=== PATIENT | female | born 1975 | race Caucasian/White ===

== ENCOUNTER 2022-10-21 20:11 | Emergency (ER) | payer BC, SELFPAY ==
[2022-10-21 20:15] VITALS: BP 110/64; PULSE 117; RESP 20; TEMP 37.1; O2SAT 96
== END 2022-10-21 22:19 | disposition left against medical advice (07) ==
LOC: ANHED 22:19
DX: R51.9 Headache, unspecified (principal)
CPT/HCPCS: 99199

== ENCOUNTER 2023-04-03 10:19 | Emergency (ER) | payer BC, SELFPAY ==
[2023-04-03] VITALS (9 sets, daily range): BP systolic 110–129; BP diastolic 69–95; PULSE 69–100; RESP 16–18; TEMP 36.6–36.7; O2SAT 96–100
--- NOTE | 2023-04-03 12:13 | ED.EXTPRO ---
HPI - Extremity Problem General Chief complaint: Extremity Problem,Nontraumatic Stated complaint: my lupus is acting out Time Seen by Provider: 04/03/23 11:58 History of Present Illness HPI Narrative: Patient is a 47-year-old female with a history of lupus presenting with pain. States that when her lupus flares she often has severe pain in her right foot. States that this time she has severe pain in both of her feet. States that she started to notice some of her symptoms over the weekend so she started taking some of her steroids. States that she follows with a armhole baster jumpbasting at [facility] and is on Plaquenil as well as immunotherapy for her lupus. States that she has tramadol for severe pain which is not been helping much. also complains of muscle spasms in her toes. She denies any recent trauma. No recent infectious symptoms. No leg swelling or redness. No further complaints. Related Data Allergies Allergy/AdvReac Type Severity Reaction Status Date / Time morphine Allergy Unknown unknown Verified 10/14/22 13:56 TAPES AdvReac Severe SKIN Uncoded 10/14/22 13:56 BREAKDOWN--LEAVES SCARS AT AREAS Review of Systems Review of Systems: All systems reviewed & are unremarkable except as noted in HPI and below PMFSH Family History Family History Mother Family history of chronic obstructive pulmonary disease Father Family history of heart disease in male family member before age 55 Social History Social History Smoking status: Never smoker Alcohol intake: never Lack of Transportation: No Lack of Food: Never True Current Housing: I Have Housing Concerned About Future Housing: No Difficulty Paying Gas/Electric Bills: No Difficulty Paying for Meds: No Currently Unemployed: No Education: Trade/Vocational Certificate Difficulty w/ Childcare or Family Care: No Exam Narrative: GENERAL: Nontoxic, somewhat tearful secondary to her pain, pleasant cooperative HEAD: Normocephalic, atraumatic. EYES: PERRLA and EOMI. ENT: grossly unremarkable NECK: Supple. CHEST: No respiratory distress. HEART: Regular rate and rhythm. Normal peripheral pulses. EXTREMITIES: Normal range of motion. No edema. 2+ DP pulses bilaterally, no erythema or edema of either lower extremity SKIN: Warm, dry, no rash. NEURO: No focal deficits. Alert and oriented x3. PSYCH: Normal mood and affect. Course Vital Signs Vital signs: Vital Signs Temperature 98 F 04/03/23 10:30 Pulse Rate 100 04/03/23 10:30 Respiratory Rate 16 04/03/23 10:30 Blood Pressure 129/95 H 04/03/23 10:30 Pulse Oximetry 100 04/03/23 10:30 Temperature 98.0 F 04/03/23 17:40 Pulse Rate 82 04/03/23 17:40 Respiratory Rate 16 04/03/23 17:40 Blood Pressure 127/88 04/03/23 17:40 Pulse Oximetry 98 04/03/23 17:40 MDM - Extremity (Nontraumatic) MDM Narrative Medical decision making narrative: 47-year-old female presenting with lupus flare. Vitals are stable. Exam remarkable for the above. Patient denies any trauma or infectious symptoms lately. States that she often goes to [place] for her lupus flares and she receives a cocktail of medications that seem to help. Will give some fluids, steroids, Dilaudid, Toradol. Patient with some improvement in her pain after IV pain medications but pain worsens when she tries to ambulate. Patient given some Valium and on re-evaluation states that this seemed to help significantly. States that her spasms have gotten much better. She feels comfortable going home. Will send her home with a Medrol Dosepak as well as some Valium for severe spasms. She is going to follow-up closely with her armhole baster jumpbasting. Appropriate return precautions given. Discharged in stable condition. Differential Diagnosis Differential diagnosis: Likely other ( Foot pain, lupus) Me
[2023-04-03] MEDS: SODIUM CHLORIDE 0.9% IV 1,000 ML 999 ML IV CONT (12:35)
[2023-04-03] MEDS: methylPREDNISolone SOD SUCC 125 MG VIAL IV PUSH (12:36)
[2023-04-03] MEDS: KETOROLAC 30 MG/ML VIAL (*BKC) IV PUSH (12:36)
[2023-04-03] MEDS: HYDROmorphone HCL INJ (*CRX) 1 MG/ML SYR IV PUSH (12:37)
--- NOTE | 2023-04-03 13:23 | PC.NURSE ---
Pt resting with reg resp. States pain meds have taken the edge off her foot pain. PO fluids given.Denies nausea
[2023-04-03] MEDS: HYDROmorphone HCL INJ (*CRX) 1 MG/ML SYR 0.5 MG IV PUSH (14:49)
[2023-04-03] MEDS: diazePAM INJ (*CRX) 10 MG/2 ML SYRINGE 2 MG IV PUSH (14:49)
--- NOTE | 2023-04-03 14:58 | PC.NURSE ---
Pt ambulated with 1 assist to bathroom. Gait unsteady, pt c/o spams & increase pain when bearing weight. Dr. Mojica at bedside reassessed pt & orders received.
--- NOTE | 2023-04-03 15:39 | PC.NURSE ---
Pt reports spams to feet have subsided since Valium given. Rates pain 2 at this time.
--- NOTE | 2023-04-03 17:01 | PC.NURSE ---
Pt resting talking on phone.
--- NOTE | 2023-04-03 17:44 | PC.NURSE ---
Pt able to ambulate short distances with slow gait. Pain controlled & spasm to bilateral feet gone
== END 2023-04-03 17:47 | disposition home or self-care (01) ==
PROVIDERS: Emergency Provider Emergency Medicine
DX: M79.671 Pain in right foot (principal); M79.672 Pain in left foot; M32.9 Systemic lupus erythematosus, unspecified
CPT/HCPCS: 96361; 96374; 96375; 96376; 99284; J1170; J1885; J2930; J3360; J7030

== ENCOUNTER 2023-05-21 18:40 | Emergency (ER) | payer BC, SELFPAY ==
--- NOTE | ~2023-05-21 | CT_ITS ---
EXAMINATION: CTA brain carotid DATE: 05/21/2023 21:34 INDICATION: Seizure-like activity. TECHNIQUE: Computed tomographic angiography (CTA) of the head was performed without and with 100 mL O mnipaque-350 intravenous contrast. CTA of the neck was performed with intravenous contrast. Automated exposure control and iterative reconstruction technique were employed. The dose-length product was 1 635.06 mGy-cm. Maximum intensity projection and volume rendered 3D-reconstructions were created by ahsan tomas technologist on a separate workstation. COMPARISON: None. FINDINGS: HEAD CTA: There is no intracranial hemorrhage, acute infarction, or abnormal intracranial mass lesion . The ventricles are normal in size. There is mild mucosal thickening in the ethmoid sinuses. The orb its are normal. The mastoid air cells are normal. The vertebral arteries are codominant. There is no significant stenosis of basilar artery or the posterior cerebral arteries. There is no significant st enosis of intracranial internal carotid arteries or anterior or middle cerebral arteries. Anterior co mmunicating artery is normal. The posterior communicating arteries are normal. There is no aneurysm. NECK CTA: There are no pathologically enlarged lymph nodes. There is no significant stenosis of the v ertebral arteries. There is no visible plaque in the proximal internal carotid arteries. There is 0% stenosis of the proximal right internal carotid artery relative to normal distal artery lumen diamete r (NASCET criteria). There is 0% stenosis of the proximal left internal carotid artery relative to no rmal distal artery lumen diameter. There is mild cervical spondylosis. IMPRESSION: 1. Normal brain. No aneurysm or significant intracranial arterial stenosis. 2. 0% stenosis of the proximal internal carotid arteries relative to normal distal artery lumen diame ters (NASCET criteria). Reviewed, dictated and finalized at location E. IMPRESSION: 1. Normal brain. No aneurysm or significant intracranial arterial stenosis. 2. 0% stenosis of the proximal internal carotid arteries relative to normal dis mian artery lumen diameters (NASCET criteria).
[2023-05-21 18:39] VITALS: BP 133/96; PULSE 114; RESP 18; TEMP 36.4; O2SAT 98
--- NOTE | 2023-05-21 19:45 | ECG_ITS ---
SEE SCANNED COPY FOR CONFIRMED REPORT MTDD
--- NOTE | 2023-05-21 19:57 | ED.SEIZURE ---
HPI - Seizure General Chief Complaint: Seizure Stated Complaint: seizure Time Seen by Provider: 05/21/23 19:00 History of Present Illness HPI Narrative: Patient with history of lupus presents here after seizure-like activity prior to arrival here. No history of seizures, however 2 months ago she stopped walking due to pain in her legs suspected lupus flare, and 10 days ago started numbness and pain to her right face with twitching, evaluated by Neurology thought very unlikely stroke and discharge her with Ativan and carbamazepine, per at bedside the Ativan seemed to help with her pain and symptoms. Related Data Allergies Allergy/AdvReac Type Severity Reaction Status Date / Time morphine Allergy Unknown unknown Verified 10/14/22 13:56 TAPES AdvReac Severe SKIN Uncoded 10/14/22 13:56 BREAKDOWN--LEAVES SCARS AT AREAS Review of Systems Review of Systems: ROS unobtainable: Yes unobtainable due to medical condition [facility] Family History Family History Mother Family history of chronic obstructive pulmonary disease Father Family history of heart disease in male family member before age 55 Social History Social History Smoking status: Never smoker Alcohol intake: never Lack of Transportation: No Lack of Food: Never True Current Housing: I Have Housing Concerned About Future Housing: No Difficulty Paying Gas/Electric Bills: No Difficulty Paying for Meds: No Currently Unemployed: No Education: Trade/Vocational Certificate Difficulty w/ Childcare or Family Care: No Exam Narrative: EXAMINATION OF ORGAN SYSTEMS/BODY AREAS: Constitutional: Vital signs per nursing GENERAL: Appears anxious and tearing up HEAD: Normal with no signs of head trauma. EYES: EOMI, conjunctiva normal, PERRL ENT: Holding right side of face clenched up as of in a grimace, not opening her right eye, sticking her tongue out of the right side of her mouth while rhythmically clenching her teech LUNGS: Nonlabored breathing. HEART: [Regular rate and rhythm] ABD: [Soft], [nontender to palpation] EXT: Holding right arm close to her side with wrist flexed SKIN: [No rashes or lesions.] NEURO: [Alert. Not using her right arm as much with it held flexed, with slightly weaker right leg compared to left, reporting diminished sensation to the right side of her face however her right face is clenched compared to the left, raising both eyebrows equally. Drooling and not speaking but nods and shakes head to answer questions and follows commands] Course Vital Signs Vital signs: Vital Signs Temperature 97.6 F 05/21/23 18:39 Pulse Rate 114 H 05/21/23 18:39 Respiratory Rate 18 05/21/23 18:39 Blood Pressure 133/96 H 05/21/23 18:39 Pulse Oximetry 98 05/21/23 18:39 Oxygen Delivery Room Air 05/21/23 18:39 Temperature 97.6 F 05/21/23 18:39 Pulse Rate 96 05/21/23 21:01 Respiratory Rate 15 05/21/23 21:01 Blood Pressure 126/90 05/21/23 21:01 Pulse Oximetry 100 05/21/23 21:01 Oxygen Delivery Room Air 05/21/23 18:40 MDM - Seizure MDM Narrative Medical decision making narrative: 47-year-old female with history of lupus presents with bizarre seizure-like activity and physical exam that does not seem to be consistently lateralizing. The description of her seizure-like where she is not postictal and was still reacting to external stimuli, I am much more suspicious of possible psychogenic nonepileptic seizure, less likely epileptic seizure, however she does have a history of lupus and I cannot rule out any sort of lupus cerebritis or CVA or mass or multiple sclerosis. On exam here she is not speaking but does constantly stick her tongue out of the right side of her face and then try to clench down, and is holding her right face clenched, she has normal movement of her e
[2023-05-21] MEDS: LORazepam INJ (*CRX) 2 MG/ML VIAL 1 MG IV PUSH (20:00)
[2023-05-21 20:11] LABS: Glucose Point of Care 110 mg/dl (65-105)
[2023-05-21 20:46] LABS: Appearance Urine Clear (Clear); Bacteria Urine None Seen /hpf; Bilirubin Urine Negative (Negative); Blood Urine Trace (Negative); Color Urine Yellow (Yellow); Glucose Urine UA Negative (Negative); Ketones Urine Negative (Negative); Leukocyte Esterase Ur Negative LEU/UL (Negative); Nitrate Urine Negative (Negative); Non Pathogenic Casts 0-2; Protein Urine Negative (Negative); RBC Urine 0-2 /hpf (0-2); Specific Grav Ur 1.008 (1.001-1.035); Squamous Epithelial Cell Urine None Seen /hpf (Few); Urobilinogen Urine 0.2 mg/dL (<2.0); WBC Urine 0-5 /hpf (0-3)
[2023-05-21 20:55] LABS: Amphetamine Screen Urine Negative (Negative); Barbiturate Screen Urine Negative (Negative); Benzodiazepines Screen Urine Positive (Negative); Cannabinoid Screen Urine Negative (Negative); Cocaine Screen Urine Negative (Negative); Methadone Screen Urine Negative (Negative); Opiate Screen Urine Negative (Negative); Phencyclidine Screen Urine Negative (Negative)
[2023-05-21 20:56] LABS: Add Urine Microscopic? YES
[2023-05-21 21:01] VITALS: BP 126/90; PULSE 96; RESP 15; O2SAT 100
[2023-05-21 21:01] LABS: Basophils Absolute Auto 0.1 K/mm3 (0.0-0.1); Basophils Percent Auto 0.5 % (0.2-1.2); Eosinophils Percent Auto 0.1 % (0-4.4); Hematocrit 40.5 % (37.0-47.0); Hemoglobin 13.7 g/dL (12.0-15.0); Lymphocytes Absolute Auto 0.88 K/mm3 (0.9-3.2); Lymphocytes Percent Auto 8.5 % (18.3-44.2); Mean Corpuscular HGB Conc 33.8 g/dl (32-36); Mean Corpuscular Volume 88.8 fl (80-100); Monocytes Absolute Auto 0.4 K/mm3 (0.1-0.6); Monocytes Percent Auto 3.4 % (2.6-8.5); Neutrophils Percent Auto 86.5 % (45.5-73.1); Platelet Count Result 257 k/mm3 (150-375); Red Blood Count 4.56 M/mm3 (4.2-5.4); Red Cell Distribution Width 12.8 % (11.5-14.5); White Blood Count 10.4 K/mm3 (4.5-10.0)
[2023-05-21 21:12] LABS: Partial Thromboplastin Time 27.9 Seconds (22.3-36.8)
[2023-05-21 21:14] LABS: Anion Gap 5 mmol/L (4-12); Blood Urea Nitrogen 16 mg/dL (7-17); Calcium 9.5 mg/dL (8.4-10.2); Carbon Dioxide 27 mmol/L (22-30); Chloride 105 mmol/L (98-107); Estimated CRCL calculation 103 ml/min; Estimated Glomerular Filt Rate > 60; Glucose 109 mg/dL (65-110); Potassium 4.5 mmol/L (3.4-5.0); Sodium 137 mmol/L (137-145)
[2023-05-21 21:14] LABS: Ethanol < 10 mg/dL (<10)
[2023-05-21 21:26] LABS: Troponin I < 0.012 ng/mL (0.000-0.034)
[2023-05-21 22:39] VITALS: BP 128/84; PULSE 90; RESP 16; O2SAT 99
== END 2023-05-21 22:52 | disposition home or self-care (01) ==
PROVIDERS: Emergency Provider Emergency Medicine
DX: R56.9 Unspecified convulsions (principal); M32.9 Systemic lupus erythematosus, unspecified; R00.0 Tachycardia, unspecified
CPT/HCPCS: 36415; 70496; 70498; 80048; 80307; 81001; 81025; 82948; 84484; 85025; 85610; 85730; 93005; 96374; 99284; J2060; Q9967

== ENCOUNTER 2023-11-23 07:04 | Outpatient (CLI) | payer OTHER, SELFPAY ==
--- NOTE | ~2023-11-23 | MR_ITS ---
MRI of the left knee Clinical history: Injury Technique: Coronal proton density and proton density-weighted images, sagittal proton-density and T2 fat-sat images, and axial proton-density fat-saturated images were acquired. Findings: Exam mildly degraded by motion artifact. Anterior and posterior cruciate ligaments are inta ct. Medial collateral ligament and the lateral collateral ligament complex appear intact. Popliteus t endon is intact. Meniscal evaluation is suboptimal due to motion artifact, but no definite tear of either the medial o r lateral meniscus is seen. 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 Probable extensive high-grade chondromal acia of the medial femoral condyle. Probable chondroid lesion at the distal femoral metadiaphyseal re gion measuring 3.9 cm in length, slightly enchondroma. There is an additional subtle curvilinear lesi on at the medial femoral condyle region, suggestive of bone infarct. Extensor mechanism is intact. Small joint effusion present. Minimal Signh's cyst. Impression: Exam degraded by motion artifact. No definite ligamentous injury or meniscal tear seen. Probable 3.9; enchondroma at the distal femoral metadiaphysis. Suspected bone infarct at the medial femoral condyle, versus possibly additional chondroid lesion.. 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 Reviewed, dictated and finalized at location M. Impression: Exam degraded by motion artifact. No definite ligamentous injury or meniscal te ar seen. Probable 3.9; enchondroma at the distal femoral metadiaphysis. Suspected bone infarct at the medial femoral condyle, versus possibly additiona l chondroid lesion.. 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
== END 2023-11-23 07:05 | disposition home or self-care (01) ==
PROVIDERS: PCP Orthopaedic Surgery; Visit Provider Orthopaedic Surgery
DX: M22.42 Chondromalacia patellae, left knee (principal); S89.92XA Unspecified injury of left lower leg, initial encounter; X58.XXXA Exposure to other specified factors, initial encounter
CPT/HCPCS: 73721

== ENCOUNTER → 2024-02-15 12:05 | Outpatient (REF) | payer OTHER, SELFPAY | LOC: ANHLAB 12:05 | PROVIDERS: PCP Family Medicine; Visit Provider Orthopaedic Surgery | DX: M25.462 Effusion, left knee (principal); M32.9 Systemic lupus erythematosus, unspecified | CPT/HCPCS: 88108 ==

== ENCOUNTER 2024-02-15 12:36 | Outpatient (NON) | payer BC, SELFPAY ==
[2024-02-15 14:03] LABS: Appearance Synovial Fluid Cloudy (Clear); Color Synovial Fluid Red (Colorless); Source Synovial Fluid Lt Knee Syn Fluid
[2024-02-15 14:04] LABS: Crystals Synovial Fluid None Seen (None Seen); Lymphocytes Synovial Fluid 36 %; Monocytes Synovial Fluid 2 %; Neutrophils Synovial Fluid 62 % (0-25); Nucleated Cell Synovial Fluid 267 /uL (0-200); RBC Synovial Fluid 103000 /uL (0-0)
[2024-02-20 21:44] LABS: Total Protein Synovial Fluid 2.8 g/dL (1.0-3.0)
== END 2024-02-15 12:37 | disposition home or self-care (01) ==
LOC: ANHLAB 12:40
PROVIDERS: PCP Family Medicine; Visit Provider Orthopaedic Surgery
DX: M25.462 Effusion, left knee (principal); N32.9 Bladder disorder, unspecified
CPT/HCPCS: 36415; 82945; 84157; 86430; 89051; 89060

== ENCOUNTER 2024-03-07 14:15 | Outpatient (RCR) | payer OTHER, SELFPAY ==
--- NOTE | 2023-12-12 09:14 | PTOPEVAL1 ---
Assessment and note entered by Cesilia Conrad, PT Evaluation Information Assessment Status Evaluation Diagnosis S89.92XA; M95.8 ICD-10 Condition Codes (PT) Pain in left hip M25.552,Pain in left knee M25.562 ,Difficulty Walking R26.2,R26.9,Weakness R53.1 Onset September 04 2023 Subjective Information Pt reports has been bedridden for 5 months starting last Mar 2023 due to lupus flare up. After recovering, she decided to get back to work and on the first day of return to work, she slid on a wet floor fell straight to her L knee, she iced it and took Ibuprofen and then continued to work for a month. Pain gradually became worse and worse and set an appointment with Dr. Contreras around mid October for check up. Received cortisone shot which took 2 weeks to take effect, Ortho recommended taking weight off of the knee at this time. Squatting or bending over, weight bearing in standing and transfers increase pain, unable to get comfortable in bed, straightening or bending knee fully causes pain and unable to get some sleep, uses body pillow for support. Nothing seems to relieve it, always feel constant pain, decreased intensity when taking medication however not completely out of pain . Her goal for therapy is to be able to get back to standing and walking without pain. Reported Pain Level Pain Score 6: Self Report Additional Pain Score Comments she reports that walking while using crutches 4/10 due to reduced load to L knee Assessment PT Clinical Summary Pt is a 48 yo female who presents to therapy with increased pain to L knee which resulted to significant loss of ROM, strength and functional mobility. MRI results showed No definite ligamentous injury or meniscal tear, probable enchondroma at the distal femoral metadiaphysis and chondromalacia worst at the patella. Pt scored 17 on LEFS indicating severe disability/ functional limitation due to increased pain with weight bearing, decreased standing tolerance, impaired balance and gait requiring constant use of AD. She will benefit from skilled PT to address pain and deficits, improve strength, improve standing and indep ambulation to be able to return to work and perform ADLs and IADLs without pain and discomfort. Plan of Care Interventions Check Out for Orthotic/Pr,Electrical Stimulation, Gait Training,Hot Pack/Cold Pack,Intermittent Compression,Manual Therapy,Neuro Re-education, Patient/Caregiver Education,Therapeutic Activities, Therapeutic Exercise,Ultrasound,Other Other Interventions IASTM, Taping PT Services Indicated Yes Treatment Frequency and 2x/wk x 12 visits Duration These treatments will address the objective and functional deficits as defined above. The patient will be advanced safely and appropriately in order for the patient to progress towards his/her prior level of function. Additional exercises will be introduced and as well as a comprehensive home exercise program upon discharge, if needed, ?to ensure carryover of functional gains achieved in the clinic. This treatment plan has been reviewed and agreement upon by the patient.
--- NOTE | 2024-01-29 13:21 | PTOPPROG ---
Assessment and note entered by Cesilia Conrad, PT Re-eval Information Assessment Status Progress Diagnosis S89.92XA; M95.8 ICD-10 Condition Codes (PT) Pain in left hip M25.552,Pain in left knee M25.562 ,Difficulty Walking R26.2,Abnormalities of gait and mobility R26.9,Weakness R53.1 Onset September 04 2023 Subjective Information Pt reports her L knee is very sore and tender today, continue to have swelling. painful and sensitive to medial area, tender on the outside. Assessment PT Clinical Summary Patient demos good progress with skilled PT treatment, presents with improved ROM, standing tolerance and general BLE strength compared to evaluation day information. However, increased pain and ongoing NWB restrictions continue to limit achieving established goals at this time. Pt is awaiting surgical procedure decision from Ortho surgeon, pt will benefit from continued skilled PT services for management of pain and swelling, and to perform pre-surgery exercises to improve post surgery outcome and functional mobility. Plan of Care Interventions Electrical Stimulation,Hot Pack/Cold Pack, Intermittent Compression Pump,Manual Therapy,Neuro Re-education,Patient/Caregiver Education, Therapeutic Activities,Therapeutic Exercise, Ultrasound,Other Other Interventions Taping, IASTM PT Services Indicated Yes Treatment Frequency and 2x/wk x 6 visits Duration These treatments will address the objective and functional deficits as defined above. The patient will be advanced safely and appropriately in order for the patient to progress towards his/her prior level of function. Additional exercises will be introduced and as well as a comprehensive home exercise program upon discharge, if needed, ?to ensure carryover of functional gains achieved in the clinic. This treatment plan has been reviewed and agreement upon by the patient.
== END 2024-03-10 23:59 | disposition home or self-care (01) ==
LOC: ANHHIPT 14:15
PROVIDERS: PCP Orthopaedic Surgery; Visit Provider Orthopaedic Surgery
DX: S89.92XA Unspecified injury of left lower leg, initial encounter (principal); M95.8 Other specified acquired deformities of musculoskeletal system
CPT/HCPCS: 97014; 97016; 97035; 97110; 97112; 97140; 97161; 97530; 97750; G0283

== ENCOUNTER 2024-07-25 08:45 | Outpatient (RCR) | payer OTHER, BC, SELFPAY ==
--- NOTE | 2024-04-29 10:15 | OPREHPOC ---
Outpatient Therapy Plan of Care This is a Multidisciplinary Plan of Care that may contain components documented by all disciplines (PT, OT, and ST.) PT Problem 1 PT Problem #1 Knowledge Deficit PT Goal 1 Goal / Goal Update 1. Pt to be IND with issued HEP Target Visit 8 PT Problem 2 PT Problem #2 Pain PT Goal 1 Goal / Goal Update 1. Pt to report knee pain no greater than 5/10 in the last week. Target Visit 8 PT Problem 3 PT Problem #3 Impaired Range of Motion PT Goal 1 Goal / Goal Update 1. pt to improve knee extension no greater than 3 deg 2. Pt to improve knee flexion to 110 deg Target Visit 8 PT Problem 4 PT Problem #4 Impaired Gait PT Goal 1 Goal / Goal Update 1. Pt to ambulate on level surface without AD 2. Pt to demonstrates 200ft of ambulation during 2 min walk distance Target Visit 8
--- NOTE | 2024-04-29 10:15 | PTOPEVAL1 ---
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 She states slipped and fell directly onto her knee, on September 03. Since then, has had fluid removed from her knee 3 times. She has been selectively NWB on her L knee. States she can take 3 steps before her knee destinee under pain. Shes she did not stop working until middle of November, states she couldn't miss out on any more work. Imaging shows a near complete tear of the medial meniscus. Pt states she has gained 70lb since her injury. States she completed 18 visits of therapy in January and February. States pain as 5/10 at rest, and 10/10 pain with activity. Reported Pain Level Pain Score 5: Self Report Assessment PT Clinical Summary Pt presents to therapy today for her initial evaluation with a diagnosis of L knee pain, MRI showing a near full thickness tear. Today she demonstrates significantly limitations d/t pain and fear avoidance behaviors. She demonstrates active motion from 0-15-90 deg, is currently lacking 15 deg from terminal knee extension. She is selectively NWBing on her L knee with zackery axillary crutches. She reports 86% disability on the LEFS. She is point tenderness throughout the knee with mild edema present as well. Pt demonstrates significantly decreased mobility from her baseline reports. Skilled therapy services are indicated to progress ROM, improve gait pattern. and to progress towards PLOF. Plan of Care Interventions Electrical Stimulation,Gait Training,Hot Pack/Cold Pack,Intermittent Compression Pump,Manual Therapy ,Neuro Re-education,Patient/Caregiver Education, Therapeutic Activities,Therapeutic Exercise PT Services Indicated Yes Treatment Frequency and 2x/wk for 8 visits Duration These treatments will address the objective and functional deficits as defined above. The patient will be advanced safely and appropriately in order for the patient to progress towards his/her prior level of function. Additional exercises will be introduced and as well as a comprehensive home exercise program upon discharge, if needed, ?to ensure carryover of functional gains achieved in the clinic. This treatment plan has been reviewed and agreement upon by the patient.
--- NOTE | 2024-05-22 15:22 | PTOPPROG ---
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 She states slipped and fell directly onto her knee, on September 03. Since then, has had fluid removed from her knee 3 times. She has been selectively NWB on her L knee. States she can take 3 steps before her knee destinee under pain. Shes she did not stop working until middle of November, states she couldn't miss out on any more work. Imaging shows a near complete tear of the medial meniscus. Pt states she has gained 70lb since her injury. States she completed 18 visits of therapy in January and February. States pain as 5/10 at rest, and 10/10 pain with activity. Assessment PT Clinical Summary Pt c/o persistent pain to L knee, Per Ortho Orders : Aggressive ROM, stretching, strengthening, modalities prn. However, pt is currently unable to tolerate land-based ROM training at this time with very minimal change in the measurements. Unable to ambulate further than 10ft without increased assistance to prevent a fall due to feeling that the L knee would buckle. Therapist recommendations would be to trial aggressive ROM training as well as stretching and strengthening exercises using hydrotherapy in the pool. She will benefit from aquatics for buoyancy to reduce weight-bearing on joints, allowing for greater freedom of movement and ambulation tolerance, further improve active ROM, as well as management of chronic pain; Hydrostatic Pressure to increase blood flow and reduce swelling which will increase her chances of meeting Dr. Contreras's goal/ requirements prior to surgery. Plan of Care Interventions Aquatic Therapy,Check Out for Orthotic/Prosthetic, Electrical Stimulation,Gait Training,Hot Pack/Cold Pack,Intermittent Compression Pump,Manual Therapy ,Neuro Re-education,Patient/Caregiver Education, Therapeutic Activities,Therapeutic Exercise, Ultrasound,Other PT Services Indicated Yes Treatment Frequency and 2x/wk x 8 visits of pure aquatic therapy to reach Duration 0-130 degrees of active L knee ROM These treatments will address the objective and functional deficits as defined above. The patient will be advanced safely and appropriately in order for the patient to progress towards his/her prior level of function. Additional exercises will be introduced and as well as a comprehensive home exercise program upon discharge, if needed, ?to ensure carryover of functional gains achieved in the clinic. This treatment plan has been reviewed and agreement upon by the patient.
--- NOTE | 2024-07-15 14:34 | OPREHPOC ---
Outpatient Therapy Plan of Care This is a Multidisciplinary Plan of Care that may contain components documented by all disciplines (PT, OT, and ST.) PT Problem 1 PT Problem #1 Knowledge Deficit PT Goal 1 Goal / Goal Update 1. Pt to be IND with issued HEP Target Visit 8 Progress Met PT Problem 2 PT Problem #2 Pain PT Goal 1 Goal / Goal Update 1. Pt to report knee pain no greater than 5/10 in the last week. 07/15/24: Continues to have spikes of pain and pain limitations Target Visit 16 Progress Not Met PT Problem 3 PT Problem #3 Impaired Range of Motion PT Goal 1 Goal / Goal Update 1. pt to improve knee extension no greater than 3 deg 2. Pt to improve knee flexion to 110 deg 07/15/24: Flexion to 133 today. 4 degrees from extension Target Visit 16 Progress Partially Met PT Problem 4 PT Problem #4 Impaired Gait PT Goal 1 Goal / Goal Update 1. Pt to ambulate on level surface without AD 2. Pt to demonstrates 200ft of ambulation during 2 min walk distance 07/15/24: antalgic gait continues. Needs AD currently for offloading Target Visit 16 Progress Not Met PT Problem 5 PT Problem #5 Impaired Strength PT Goal 1 Goal / Goal Update Improve gross left knee strength to 4+/5 to improve functional stability with gait and ADLs Target Visit 16
--- NOTE | 2024-07-15 14:34 | PTOPPROG ---
Assessment and note entered by Jose Nolasco, PT Evaluation Information Assessment Status Progress Diagnosis L knee pain ICD-10 Condition Codes (PT) Pain in left knee M25.562,Difficulty Walking R26.2 ,Abnormalities of gait and mobility R26.9,Weakness R53.1 Other ICD-10 Condition Codes ( S83.249A PT) Subjective Information Reports that she continues to have a lot of difficulty walking at this time and trusting the knee to not give out on her. She has a grinding feeling on the top of the patella which is new in the last couple of weeks. She has been trying to ween herself off of using the cane and she is apprehensive with walking without it right now. Assessment PT Clinical Summary Patient demonstrates improve knee ROM this date based on previous findings. She continues to have significant antalgic gait, pain, and lack of terminal extension. She is limited in knee extension strength at this time, and has palpable tenderness to patellar complex. Patient continues to show motivation to improve but appears frustrated with the timeline of symptom resolution . She has follow up with MD in August and will continue therapy emphasizing updated strength and gai goals until that time. Plan of Care Interventions Aquatic Therapy,Check Out for Orthotic/Prosthetic, Electrical Stimulation,Gait Training,Hot Pack/Cold Pack,Intermittent Compression Pump,Manual Therapy ,Neuro Re-education,Patient/Caregiver Education, Therapeutic Activities,Therapeutic Exercise, Ultrasound,Other PT Services Indicated Yes Treatment Frequency and 2x/week for 8 visits Duration These treatments will address the objective and functional deficits as defined above. The patient will be advanced safely and appropriately in order for the patient to progress towards his/her prior level of function. Additional exercises will be introduced and as well as a comprehensive home exercise program upon discharge, if needed, ?to ensure carryover of functional gains achieved in the clinic. This treatment plan has been reviewed and agreement upon by the patient.
== END 2024-07-28 23:59 | disposition home or self-care (01) ==
LOC: ANHPT 08:45
PROVIDERS: PCP Family Medicine; Visit Provider Orthopaedic Surgery
DX: M25.562 Pain in left knee (principal); S83.249A Other tear of medial meniscus, current injury, unspecified knee, initial encounter
CPT/HCPCS: 97014; 97016; 97110; 97113; 97116; 97140; 97161; 97530; G0283

== ENCOUNTER 2024-08-19 13:30 | Outpatient (RCR) | payer OTHER, BC, SELFPAY ==
--- NOTE | 2024-08-15 10:02 | OPREHPOC ---
Outpatient Therapy Plan of Care This is a Multidisciplinary Plan of Care that may contain components documented by all disciplines (PT, OT, and ST.) PT Problem 1 PT Problem #1 Knowledge Deficit PT Goal 1 Goal / Goal Update 1. Pt to be IND with issued HEP progress goal met continue to progress HEP and education Target Visit 25 Progress Met PT Problem 2 PT Problem #2 Pain PT Goal 1 Goal / Goal Update 1. Pt to report knee pain no greater than 5/10 in the last week. 07/15/24: Continues to have spikes of pain and pain limitations progress goal not met; pain range of 4-10/10 NEW GOAL 1* pain rating of 7/10 at worst 2* pt report with sleeping, awaken 3x/ night due to pain Target Visit 25 Progress Not Met PT Problem 3 PT Problem #3 Impaired Range of Motion PT Goal 1 Goal / Goal Update 1. pt to improve knee extension no greater than 3 deg 2. Pt to improve knee flexion to 110 deg 07/15/24: Flexion to 133 today. 4 degrees from extension progress goal 2 met, NEW goal: * active L knee extension 0' Target Visit 25 Progress Partially Met PT Problem 4 PT Problem #4 Impaired Gait PT Goal 1 Goal / Goal Update 1. Pt to ambulate on level surface without AD 2. Pt to demonstrates 200ft of ambulation during 2 min walk distance 07/15/24: antalgic gait continues. Needs AD currently for offloading progress goal not met- continues to use cane and 180' for walking test continue towards Target Visit 25 Progress Not Met PT Problem 5 PT Problem #5 Impaired Strength PT Goal 1 Goal / Goal Update Improve gross left knee strength to 4+/5 to improve functional stability with gait and ADLs progress goal not met, 3+ to 4-/5 continue towards Target Visit 25
--- NOTE | 2024-08-15 10:02 | PTOPPROG ---
Assessment and note entered by Venecia Gutiérrez, PT Assessment Status Progress Diagnosis L knee pain ICD-10 Condition Codes (PT) Pain in left knee M25.562,Difficulty Walking R26.2 ,Abnormalities of gait and mobility R26.9,Weakness R53.1 Other ICD-10 Condition Codes ( S83.249A PT) Subjective Information saw earlier this week, wants me to have 4 more weeks of therapy, then return to him on Sep 16 and talk about surgery to scrape the bone; knee continues to stay swollen and worse when I am walking and up more; if I stay in bed all time with ice--it goes down; can be up and walking about 30 minutes at best, then have sit down & rest due to pain; constantly have knee pain, some days excruciating and cannot get up out of bed, but just to go to the bathroom; using the cane all the time; doing the HEP and going to pool 3x/ wk for exercises; have fallen 4 times due to R knee giving out and go down, lots more times I have caught myself with the cane and avoided falling; continues to be off work, problems doing her usual home chores--family have to do them. Very frustrated, the fall happened almost 1 year ago and still having problems and pain. PAIN: range in the past week 4-10/10; sharp, intense pain; goes up from top of knee to mid thigh; feels like need to pop my knee, stuck joint; medial knee pain always there and lateral thigh pain increase pain: standing /walking 30 minutes on feet; squatting down; full extension of knee; sit in car for 1 hour to go to in [facility] decrease pain: elevate, ice, soak hot tub, tramadol 1-3 / day report with sleeping, awaken 4-5 x/night due to knee pain use the tubigrip and knee brace PRN therapy modalities help the pain some; Assessment PT Clinical Summary Carly has received a total of 17 PT sessions. She is very frustrated about the continued pain and limited activity tolerance. LE functional scale self rating of 91% limitation in activity level. Limited with walking, sitting, sleeping and home activity. She reports 4 falls in the past month due to knee giving out. With today's assessment: pain reported 4-10/10; gross strength of L hip and knee 3+ to 4-/5; active L knee ROM (-3') to 120'; pain increases with extension at medial knee and with flexion at lateral knee, posterior knee and distal ITB areas; 2 minute walking test distance with cane of 180' ; with walking, she does not shift weight onto her L LE and has decreased hip and knee flexion with swing through; she is independent with her HEP for land and aquatic exercises; therapy modalities decrease her pain. The goals were partially met. Continue PT treatment. Plan of Care Interventions Electrical Stimulation,Gait Training,Hot Pack/Cold Pack,Intermittent Compression Pump,Manual Therapy ,Neuro Re-education,Patient/Caregiver Education, Therapeutic Activities,Therapeutic Exercise, Ultrasound,Other Other Interventions taping PT Services Indicated Yes Treatment Frequency and 1-2x/wk for 8 visits Duration These treatments will address the objective and functional deficits as defined above. The patient will be advanced safely and appropriately in order for the patient to progress towards his/her prior level of function. Additional exercises will be introduced and as well as a comprehensive home exercise program upon discharge, if needed, ?to ensure carryover of functional gains achieved in the clinic. This treatment plan has been reviewed and agreement upon by the patient.
--- NOTE | 2024-09-02 08:27 | PCPTNOTE ---
pt cancelled todays session, chart unavailable
--- NOTE | 2024-09-10 11:54 | OPREHPOC ---
Outpatient Therapy Plan of Care This is a Multidisciplinary Plan of Care that may contain components documented by all disciplines (PT, OT, and ST.) PT Problem 1 PT Problem #1 Knowledge Deficit PT Goal 1 Goal / Goal Update 1. Pt to be IND with issued HEP progress goal met continue to progress HEP and education 09-10-24 d/c pt canceled due to having surgery the goals were not addressed Target Visit 25 Progress Met PT Problem 2 PT Problem #2 Pain PT Goal 1 Goal / Goal Update 1. Pt to report knee pain no greater than 5/10 in the last week. 07/15/24: Continues to have spikes of pain and pain limitations progress goal not met; pain range of 4-10/10 NEW GOAL 1* pain rating of 7/10 at worst 2* pt report with sleeping, awaken 3x/ night due to pain 09-10-24 d/c pt canceled due to having surgery the goals were not addressed Target Visit 25 Progress Not Met PT Problem 3 PT Problem #3 Impaired Range of Motion PT Goal 1 Goal / Goal Update 1. pt to improve knee extension no greater than 3 deg 2. Pt to improve knee flexion to 110 deg 07/15/24: Flexion to 133 today. 4 degrees from extension progress goal 2 met, NEW goal: * active L knee extension 0' 09-10-24 d/c pt canceled due to having surgery the goals were not addressed Target Visit 25 Progress Partially Met PT Problem 4 PT Problem #4 Impaired Gait PT Goal 1 Goal / Goal Update 1. Pt to ambulate on level surface without AD 2. Pt to demonstrates 200ft of ambulation during 2 min walk distance 07/15/24: antalgic gait continues. Needs AD currently for offloading progress goal not met- continues to use cane and 180' for walking test continue towards 09-10-24 d/c pt canceled due to having surgery the goals were not addressed Target Visit 25 Progress Not Met PT Problem 5 PT Problem #5 Impaired Strength PT Goal 1 Goal / Goal Update Improve gross left knee strength to 4+/5 to improve functional stability with gait and ADLs progress goal not met, 3+ to 4-/5 continue towards 09-10-24 d/c pt canceled due to having surgery the goals were not addressed Target Visit 25
--- NOTE | 2024-09-10 11:54 | PTOPDC ---
Assessment and note entered by Venecia Gutiérrez, PT Assessment Status Discharge - Pt Not Present Diagnosis L knee pain ICD-10 Condition Codes (PT) Pain in left knee M25.562,Difficulty Walking R26.2 ,Abnormalities of gait and mobility R26.9,Weakness R53.1 Other ICD-10 Condition Codes ( S83.249A PT) Subjective Information pt called and canceled remaining appointments due to going to have surgery. Assessment PT Clinical Summary Carly has received a total of 18 PT sessions. She called and stated she is going to have surgery on her knee. Discharge PT. The goals were not addressed. Plan of Care PT Services Indicated No
== END 2024-09-10 12:48 | disposition home or self-care (01) ==
LOC: ANHPT 13:30
PROVIDERS: PCP Family Medicine; Visit Provider Orthopaedic Surgery
DX: M25.562 Pain in left knee (principal); S83.249A Other tear of medial meniscus, current injury, unspecified knee, initial encounter
CPT/HCPCS: 97014; 97016; 97035; 97110; 97140; 97530; G0283

== ENCOUNTER 2025-02-04 08:01 | Outpatient (CLI) | payer BC, SELFPAY ==
--- NOTE | ~2025-02-04 | MR_ITS ---
EXAMINATION: MR lumbar spine wo con DATE: 02/04/2025 08:24 INDICATION: Radiculopathy, lumbar region. Low back pain. TECHNIQUE: Magnetic resonance imaging (MRI) of the lumbar spine was performed without intravenous contrast. COMPARISON: Lumbar spine radiographs 11/14/2024 FINDINGS: There is 3 degrees dextrocurvature of thoracic lumbar spine. Vertebral body heights are normal. Intervertebral disc heights are normal. The distal spinal cord signal intensity is normal. The conus medullaris is at L2-L3. The following disc levels are specifically discussed: L1-L2: The disc does not extend beyond the endplate margin. There is mild bilateral facet joint osteoarthritis. There is no neural foraminal stenosis. There is no central canal stenosis. L2-L3: The disc does not extend beyond the endplate margin. There is mild bilateral facet joint osteoarthritis. There is no neural foraminal stenosis. There is no central canal stenosis. L3-L4: The disc does not extend beyond the endplate margin. There is mild bilateral facet joint osteoarthritis. There is no neural foraminal stenosis. There is no central canal stenosis. L4-L5: The disc is bulging and has an annular fissure. There is severe bilateral facet joint osteoarthritis. There is mild bilateral neural foraminal stenosis. There is mild central canal stenosis. L5-S1: The disc is bulging. There is severe bilateral facet joint osteoarthritis. There is mild bilateral neural foraminal stenosis. There is mild central canal stenosis. IMPRESSION: 1. Mild lumbar spondylosis. Reviewed, dictated and finalized at location E. [employer]PA[employer] IMPRESSION: 1. Mild lumbar spondylosis.
== END 2025-02-04 08:02 | disposition home or self-care (01) ==
LOC: MICIMG 08:02
PROVIDERS: PCP Orthopaedic Surgery; Visit Provider Orthopaedic Surgery
DX: M47.816 Spondylosis without myelopathy or radiculopathy, lumbar region (principal)
CPT/HCPCS: 72148